=== PATIENT | female | born 1980 | race Caucasian/White ===

== ENCOUNTER 2018-01-07 14:34 | Emergency (ER) | payer SELFPAY | END 2018-01-07 16:36 | disposition left against medical advice (07) | LOC: ER 14:34 | DX: Z53.21 Procedure and treatment not carried out due to patient leaving prior to being seen by health care provider (principal) | CPT/HCPCS: 81025 ==

== ENCOUNTER 2018-07-14 07:17 | Emergency (ER) | payer MEDICAID ==
[~2018-07-14] VITALS: Ht 162.6 cm; Wt 60.0 kg
[2018-07-14] MEDS ORDERED: ACETAMINOPHEN 500MG TABLET PO ONE (11:15)
[2018-07-14] MEDS ORDERED: ONDANSETRON 4MG ODT PO ONE (11:15)
[2018-07-14 12:40] VITALS: BP 102/50
== END 2018-07-14 12:45 | disposition home or self-care (01) ==
LOC: ER 07:51
DX: O9A.212 Injury, poisoning and certain other consequences of external causes complicating pregnancy, second trimester (principal); Z3A.21 21 weeks gestation of pregnancy; S00.81XA Abrasion of other part of head, initial encounter; S50.812A Abrasion of left forearm, initial encounter; S50.811A Abrasion of right forearm, initial encounter; Y08.89XA Assault by other specified means, initial encounter; Y93.89 Activity, other specified; Y92.89 Other specified places as the place of occurrence of the external cause; Y99.8 Other external cause status
CPT/HCPCS: 81025; 99283; Q0162